=== PATIENT | female | born 1980 | race African-American/Black ===

== ENCOUNTER 2017-03-14 08:00 | Outpatient (CLI) | payer BC | END 2017-03-14 08:01 | LOC: LAB.N 08:00 | PROVIDERS: ATTEND Obstetrics & Gynecology | DX: Z32.01 Encounter for pregnancy test, result positive (principal) | CPT/HCPCS: 36415; 84702 ==

== ENCOUNTER 2017-03-16 11:41 | Outpatient (CLI) | payer BC | END 2017-03-16 11:42 | disposition home or self-care (01) | LOC: LAB.N 11:41 | PROVIDERS: ATTEND Obstetrics & Gynecology | DX: Z32.01 Encounter for pregnancy test, result positive (principal) | CPT/HCPCS: 36415; 84702 ==

== ENCOUNTER 2017-03-29 08:00 | Outpatient (CLI) | payer BC | END 2017-03-29 23:59 | disposition home or self-care (01) | LOC: LAB.R 08:00 | PROVIDERS: ATTEND Obstetrics & Gynecology | DX: Z11.3 Encounter for screening for infections with a predominantly sexual mode of transmission (principal) | CPT/HCPCS: 87491; 87591 ==

== ENCOUNTER 2017-04-19 13:39 | Outpatient (CLI) | payer BC ==
[2017-04-19 18:41] LABS: BASOPHILS % (AUTO) 0.5 %; EOSINOPHILS # (AUTO) 0.2 10^3/uL (0.0-0.7); EOSINOPHILS % (AUTO) 3.6 %; HGB - HEMOGLOBIN 12.6 g/dL (12.0-16.0); LYMPHOCYTES # (AUTO) 2.2 10^3/uL (1.5-3.5); LYMPHOCYTES % (AUTO) 31.8 %; MEAN CORPUSCULAR HEMOGLOBIN 29.1 pg (27.0-31.0); MEAN CORPUSCULAR HGB CONC 33.6 g/dL (32.0-36.0); MEAN CORPUSCULAR VOLUME 86.7 fL (81.0-99.0); MEAN PLATELET VOLUME 7.1 fL (7.9-10.8); MONOCYTES # (AUTO) 0.4 10^3/uL (0.0-1.0); MONOCYTES % (AUTO) 5.7 %; NEUTROPHILS % (AUTO) 58.4 %; PLT - PLATELET COUNT 270 10^3/uL (130-450); RED BLOOD COUNT 4.34 10^6/uL (4.20-5.40); RED CELL DISTRIBUTION WIDTH 13.5 % (12.0-15.0); WHITE BLOOD COUNT 6.8 x10^3/uL (4.8-10.8)
[2017-04-19 18:42] LABS: BILIRUBIN,URINE NEGATIVE (NEGATIVE); GLUCOSE, URINE (UA) NEGATIVE (NEGATIVE); KETONES,URINE (UA) NEGATIVE (NEGATIVE); LEUKOCYTE ESTERASE, URINE NEGATIVE (NEGATIVE); NITRITE,URINE NEGATIVE (NEGATIVE); OCCULT BLOOD,URINE SMALL (NEGATIVE); PROTEIN,URINE NEGATIVE (NEGATIVE); UROBILINOGEN,URINE 0.2 (NORMAL) E.U./dL (NORMAL)
[2017-04-19 18:56] LABS: BACTERIA,URINE Few /HPF (None Seen); CLARITY,URINE CLEAR (CLEAR); MUCUS,URINE Moderate Strands; RBC,URINE 0-5 /HPF (0-5); SQUAMOUS EPITHELIAL CELL,UR MANY Squamous (<= Few)
[2017-04-20 14:02] LABS: HEPATITIS C ANTIBODY NON-REACTIVE (NON-REACTIVE)
[2017-04-20 14:03] LABS: HEPATITIS B SURFACE ANTIGEN NON-REACTIVE (NON-REACTIVE)
[2017-04-20 14:25] LABS: HIV AG/AB 4TH GEN NON-REACTIVE (NON-REACTIVE)
== END 2017-04-19 13:40 | disposition home or self-care (01) ==
LOC: LAB.N 13:39
PROVIDERS: ATTEND Obstetrics & Gynecology
DX: Z36.9 Encounter for antenatal screening, unspecified (principal)
CPT/HCPCS: 36415; 81001; 81599; 85025; 86592; 86762; 86803; 86850; 86900; 86901; 87340; 87389

== ENCOUNTER 2017-04-25 08:00 | Outpatient (CLI) | payer BC ==
--- NOTE | 2017-04-25 23:50 | Ultrasound Preliminary Report ---
Exam: US OB TRANSVAGINAL IMPRESSION: 1. Findings most compatible with demise at 8 weeks 0 days. 2. No definite perigestational collection demonstrated. RADIA The call report notification system was initiated by Dr. Erin Patel at 23:45 hrs on 04/25/17. The above findings were discussed with Brandin Lester by Dr. Erin Patel at 23:48 hrs on 04/25/17. SITE ID: [id number]
--- NOTE | 2017-04-26 00:13 | Ultrasound Report ---
EXAM: FIRST TRIMESTER OBSTETRIC ULTRASOUND (Less than 11 weeks) EXAM DATE: 04/25/2017 11:11 PM. CLINICAL HISTORY: Threatened . Heartbeat not found at the referring provider's office ultraso und. COMPARISONS: None. TECHNIQUE: Transabdominal and transvaginal ultrasound examination with static image documentation. FINDINGS: LMP: 02/07/2017. Estimated gestational age: 11 weeks 0 days. Estimated due date: 11/14/2017. Gestational Sac: Single intrauterine, somewhat irregularly marginated. Mean gestational sac diameter : 29 mm = 8 weeks 0 days. Embryo: CRL (crown-rump length) 17 mm = 8 weeks 0 days. Cardiac activity: Not seen. Yolk sac: 3 mm. Amniotic fluid: Not accurately assessed at this gestational age. Early placenta: Not visible at this gestational age. Other: No perigestational fluid collection demonstrated. MATERNAL STRUCTURES: Uterus: Anteverted/Retroverted. Unremarkable. Cervix: Closed. Right Ovary/Adnexa: There is a 1.6 x 1.5 x 1.3 cm cyst within the right ovary. Right ovary measures 2 .8 x 2.6 x 2.4 cm. Left Ovary/Adnexa: Left ovary measures 2.2 x 2.0 x 1.8 cm. Free Fluid: None. Other: None. IMPRESSION: 1. Findings most compatible with demise at 8 weeks 0 days. 2. No definite perigestational collection demonstrated. RADIA The call report notification system was initiated by Dr. Erin Patel at 23:45 hrs on 04/25/17. The above findings were discussed with Brandin Lester by Dr. Erin Patel at 23:48 hrs on 04/25/17. Referring Provider Line: [phone] SITE ID: [id number]
== END 2017-04-25 08:01 | disposition home or self-care (01) ==
LOC: LAB.R 08:00
PROVIDERS: ATTEND Obstetrics & Gynecology
DX: N89.8 Other specified noninflammatory disorders of vagina (principal); Z11.3 Encounter for screening for infections with a predominantly sexual mode of transmission
CPT/HCPCS: 76817; 87480; 87491; 87510; 87591; 87660

== ENCOUNTER 2017-04-25 14:50 | Outpatient (CLI) | payer BC ==
[2017-04-25 16:04] LABS: HCG,QUALITATIVE BLOOD POSITIVE
== END 2017-04-25 14:51 | disposition home or self-care (01) ==
LOC: LAB 14:50
PROVIDERS: ATTEND Obstetrics & Gynecology
DX: O20.0 Threatened abortion (principal)
CPT/HCPCS: 36415; 84703

== ENCOUNTER 2017-04-25 21:36 | Outpatient (CLI) | payer BC ==
--- NOTE | 2017-04-25 23:50 | Ultrasound Preliminary Report ---
Exam: US OB FIRST TRIMESTER IMPRESSION: 1. Findings most compatible with demise at 8 weeks 0 days. 2. No definite perigestational collection demonstrated. RADIA The call report notification system was initiated by Dr. Erin Patel at 23:45 hrs on 04/25/17. The above findings were discussed with Brandin Lester by Dr. Erin Patel at 23:48 hrs on 04/25/17. SITE ID: [id number]
--- NOTE | 2017-04-26 00:13 | Ultrasound Report ---
EXAM: FIRST TRIMESTER OBSTETRIC ULTRASOUND (Less than 11 weeks) EXAM DATE: 04/25/2017 11:11 PM. CLINICAL HISTORY: Threatened . Heartbeat not found at the referring provider's office ultraso und. COMPARISONS: None. TECHNIQUE: Transabdominal and transvaginal ultrasound examination with static image documentation. FINDINGS: LMP: 02/07/2017. Estimated gestational age: 11 weeks 0 days. Estimated due date: 11/14/2017. Gestational Sac: Single intrauterine, somewhat irregularly marginated. Mean gestational sac diameter : 29 mm = 8 weeks 0 days. Embryo: CRL (crown-rump length) 17 mm = 8 weeks 0 days. Cardiac activity: Not seen. Yolk sac: 3 mm. Amniotic fluid: Not accurately assessed at this gestational age. Early placenta: Not visible at this gestational age. Other: No perigestational fluid collection demonstrated. MATERNAL STRUCTURES: Uterus: Anteverted/Retroverted. Unremarkable. Cervix: Closed. Right Ovary/Adnexa: There is a 1.6 x 1.5 x 1.3 cm cyst within the right ovary. Right ovary measures 2 .8 x 2.6 x 2.4 cm. Left Ovary/Adnexa: Left ovary measures 2.2 x 2.0 x 1.8 cm. Free Fluid: None. Other: None. IMPRESSION: 1. Findings most compatible with demise at 8 weeks 0 days. 2. No definite perigestational collection demonstrated. RADIA The call report notification system was initiated by Dr. Erin Patel at 23:45 hrs on 04/25/17. The above findings were discussed with Brandin Lester by Dr. Erin Patel at 23:48 hrs on 04/25/17. Referring Provider Line: [phone] SITE ID: [id number]
== END 2017-04-25 21:37 | disposition home or self-care (01) ==
LOC: DI 21:36
PROVIDERS: ATTEND Obstetrics & Gynecology
DX: O20.0 Threatened abortion (principal); N89.8 Other specified noninflammatory disorders of vagina; Z11.3 Encounter for screening for infections with a predominantly sexual mode of transmission
CPT/HCPCS: 36415; 76801; 76817; 84703; 87480; 87491; 87510; 87591; 87660

== ENCOUNTER 2017-04-26 11:30 | Outpatient (CLI) | payer BC ==
--- NOTE | 2017-04-26 13:40 | PREOP HISTORY & PHYSICAL ---
ANTICIPATED DATE OF ADMISSION: 04/27/2017 IDENTIFICATION: This is a 36-year-old G4, P2-0-1-2 with a 10-week 4-day missed . HISTORY OF PRESENT ILLNESS: The patient is a patient of [facility] with whom we have been watching her with her . I started seeing the patient for her beginning on 03/19/2017. An ultrasound on 03/29/2017 and 6 weeks 4 days, was consistent with dates. The patient's has been going well until about 2 days ago. The patient called me and stated that she was having some small amount of vaginal bleeding. The bleeding did stop and restarted again. The patient came to see us at [facility] and an ultrasound was performed yesterday on 04/25/2017. This ultrasound unfortunately showed a single intrauterine somewhat irregularly marginated. The embryo measured 17 mm at 8 weeks 0 days. Cardiac activity was not seen. There is no perigestational fluid collection demonstrated. There is no free fluid. The patient understandably is feeling quite sad, though she is doing well under the current circumstances. She states that she is only having some dark red vaginal bleeding. She is accompanied today with her , JOJO. The patient denies any active vaginal bleeding or any contractions. I discussed with the patient my recommendation to undergo a suction, dilatation and curettage, mainly because at approximately 10 weeks' gestational age, there is a high likelihood of incomplete AB. I discussed with the patient the risks, benefits, alternatives, indications, and expectations of a suction, dilatation and curettage. Including in our discussion where the risks of infection, hemorrhage and in this particular procedure, a uterine perforation. The patient understands that this surgery should not affect her ability to have more children in the future. After all of the patient's and CJ's questions were answered to their satisfaction. They both verbalized their desire to proceed with a suction, dilatation and curettage. Consent forms have been signed. Currently, the patient denies any nausea, vomiting, fevers, chills, diarrhea, or constipation. PAST MEDICAL HISTORY: Headaches. PAST SURGICAL HISTORY: None. ALLERGIES: NO KNOWN DRUG ALLERGIES. MEDICATIONS: vitamins with folic acid. SOCIAL HISTORY: She denies any tobacco or alcohol or illicit drug use. Her is JOJO. 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 PAST OBSTETRICAL HISTORY: She has had 2 spontaneous vaginal deliveries. She has had 1 miscarriage last year that was completed with medications. LMP for this is 02/11/2018, giving an EDC of 11/18/2017. Most recent Paps are 12/19/2016 is both negative, as well as a screening for the high risk human papillomavirus. FAMILY HISTORY: Noncontributory. REVIEW OF SYSTEMS: Negative unless otherwise stated. OBJECTIVE VITAL SIGNS: Weight is 127 pounds, height is 61 inches, BMI is 24, blood pressure 102/64. GENERAL: The patient is a well-developed, well-nourished female in no apparent distress. She is appropriately sad. She is alert and oriented x3. HEENT: Within normal limits. CARDIOVASCULAR: Regular rate is regular. No murmurs, rubs. PULMONARY: Lungs clear to auscultation bilaterally. ABDOMEN: Soft, nontender. No masses, rebound, rigidity or guarding. LABORATORIES: On 04/19/2017, reveal white count of 6.8, H and H of 12.6 and 37.7, platelets 270. Rubella is nonimmune. Blood type is O positive. Antibody screen is negative. HIV nonreactive. Hepatitis B surface antigen is nonreactive. RPR is nonreactive and a urinalysis shows urogenital deuce. ASSESSMENT: A 36-year-old G4, P2-0-1-2 with a 10-week 4-day missed AB. By ultrasound, measuring 8 weeks 0 days. PLAN 1. I discussed with the patient my sadness in her losing the . I tried to reinforce to the patient that this most likely is a that was not compatible with life and that she should not have any guilt for doing anything to the or not doing something for the . I discussed with the patient her options including a suction, dilatation and curettage. The patient has verbalized her desire to proceed with this surgery. Consents have been signed. 2. The patient to get a CBC prior to surgery. 3. I discussed with the patient she should take ibuprofen 200 mg 4 tabs p.o. q.6 hours and Tylenol 500 mg 2 tabs p.o. every 12 hours p.r.n. pain. If those two medications still do not take care of her postoperative cramping, I have given the patient a prescription for Vicodin #10 tablets for breakthrough pain. 4. I have discussed with the patient that she may experience cramping and some small amount of vaginal bleeding. However, should she have worsening fevers, chills, abdominal pain or changing a pad every hour due to bleeding, she should call me immediately. 5. Patient to see me at [facility] in 2 weeks for routine postoperative examination. 6. The patient is to continue taking vitamins with folic acid as she still intends to conceive in the near future. TD: 04/26/2017 13:32 MTDAlka
[2017-04-26 19:08] LABS: BASOPHILS % (AUTO) 0.7 %; EOSINOPHILS # (AUTO) 0.2 10^3/uL (0.0-0.7); EOSINOPHILS % (AUTO) 4.3 %; HGB - HEMOGLOBIN 12.9 g/dL (12.0-16.0); LYMPHOCYTES # (AUTO) 1.7 10^3/uL (1.5-3.5); LYMPHOCYTES % (AUTO) 30.5 %; MEAN CORPUSCULAR HEMOGLOBIN 28.6 pg (27.0-31.0); MEAN CORPUSCULAR HGB CONC 32.5 g/dL (32.0-36.0); MONOCYTES # (AUTO) 0.5 10^3/uL (0.0-1.0); MONOCYTES % (AUTO) 9.4 %; NEUTROPHILS # (AUTO) 3.2 10^3/uL (1.5-6.6); NEUTROPHILS % (AUTO) 55.1 %; PLT - PLATELET COUNT 274 10^3/uL (130-450); RED BLOOD COUNT 4.52 10^6/uL (4.20-5.40); RED CELL DISTRIBUTION WIDTH 13.5 % (12.0-15.0); WHITE BLOOD COUNT 5.7 x10^3/uL (4.8-10.8)
== END 2017-04-26 11:31 | disposition home or self-care (01) ==
LOC: LAB.N 11:30
PROVIDERS: ATTEND Obstetrics & Gynecology
DX: O02.1 Missed abortion (principal)
CPT/HCPCS: 36415; 85025

== ENCOUNTER 2017-04-27 09:53 | Day surgery (SDC) | payer BC ==
[2017-04-27] MEDS ORDERED: ceFAZolin 2 GM/50 ML 2 GM/50 ML BAG IV ONE (10:09)
[2017-04-27] MEDS ORDERED: CELECOXIB 100 MG CAPSULE PO ONE (10:09)
[2017-04-27] MEDS ORDERED: LACTATED RINGERS 1,000 ML IV ONE ×2 (10:20→11:25)
[2017-04-27] MEDS ORDERED: KETOROLAC 30 MG/ML VIAL IVP ONE (11:30)
[2017-04-27] MEDS ORDERED: PROPOFOL 200 MG/20 ML VIAL IVP ONE (11:30)
[2017-04-27] MEDS ORDERED: MIDAZOLAM 2 MG/2 ML VIAL IVP ONE (11:30)
[2017-04-27] MEDS ORDERED: ONDANSETRON 4 MG/2 ML VIAL IVP ONE (11:30)
[2017-04-27] MEDS ORDERED: fentaNYL 100 MCG/2 ML VIAL IVP ONE (11:30)
[2017-04-27] MEDS ORDERED: DEXAMETHASONE 4 MG/ML VIAL IVP ONE (11:30)
--- NOTE | 2017-04-27 11:32 | OPERATIVE REPORT ---
Operative Report - Other Other Information/Narrative: Date of Operation: 04/27/2017 Surgeon: Cara Cruz DO FACOG Drawbridge Tender: None Crystal Growing Technician: Yoko Rubio CRNA Anesthesia: LMA Pre-op Dx: 1. 36 yo with a 10w5d IUP 2. Missed Pre-op Dx: 1. 36 yo with a 10w5d IUP 2. Missed Procedure: Suction dilation and curettage Findings: Products of conception Specimens: Uterine curettings EBL: 25 mL Drains: None Complications: None Dictation: [id number]
--- NOTE | 2017-04-27 12:01 | OPERATIVE REPORT ---
DATE OF OPERATION: 04/27/2017 PREOPERATIVE DIAGNOSES 1. A 36-year-old, G4, P2-0-1-2 with a 10-week, 5-day intrauterine . 2. Missed . POSTOPERATIVE DIAGNOSES 1. A 36-year-old, G4, P2-0-1-2 with a 10-week, 5-day intrauterine . 2. Missed . NAME OF PROCEDURE: Suction, dilatation and curettage. SURGEON: Cara Cruz DO, FACOG ANESTHESIA: LMA. ADVANCED MANAGER: None. BAR CATCHER: Yoko Rubio CRNA. FINDINGS: Products of conception. SPECIMENS: Uterine curettings. ESTIMATED BLOOD LOSS: 25 mL. DRAINS: None. COMPLICATIONS: None. BRIEF HISTORY: The patient is a patient of [facility] who reported having irregular vaginal bleeding at about 10 weeks' gestation. An ultrasound was performed, which unfortunately revealed no cardiac activity and a single intrauterine . I discussed with the patient the risks, benefits, alternatives, indications, expectations of a suction, dilatation and curettage. Included in our discussion were the risks of hemorrhage, infection and damage to surrounding organs, which in this case would most likely be an inadvertent uterine perforation. After all of the patient's questions were answered to her satisfaction, she verbalized her desire to proceed with surgery. Consent forms have been signed. OPERATION IN DETAIL: The patient was identified and consented, taken to the operating room where IV access was already in place. She was then given sequential compression devices which were placed on her lower extremities and turned on. The patient was given 2 grams of Ancef IV for postoperative endometritis prophylaxis. She was then given satisfactory general anesthesia via LMA by Yoko Rubio. She was then prepped and draped in a normal sterile fashion in the lithotomy position using the Yellofins stirrups. A timeout was then performed, which correctly identified the patient, site of procedure, and procedure itself. The open sided speculum was placed in the vagina and the cervix was identified. A single-tooth tenaculum was placed on the anterior lip of the cervix and the cervix was then dilated to 8-Swiss. A curved rigid 8 suction curette was then used to curette the endometrium. Next, the #2 curet was then used to sharply curette the endometrium until a satisfactory uterine cry was palpated throughout the endometrium. At this point in time, the procedure had been completed. All of the instruments were removed out of the vagina, and the cervix and vagina were hemostatically stable. The patient tolerated the procedure well and was taken back to recovery room in stable condition. She will be discharged home later today after postoperative criteria are met. The patient already has a prescription for Vicodin for breakthrough pain, should [id number] ibuprofen and Tylenol not satisfactorily control her pain. The patient is to call, should she have any worsening fever, chills, abdominal pain or vaginal bleeding. She is to follow up with myself at [facility] in 2 weeks for a routine postoperative examination. TD: 04/27/2017 12:00 CHEKO
[2017-04-27] MEDS ORDERED: HYDROcod/ACETAM 5/325 MG TABLET ONE (12:29)
[2017-04-27 13:21] VITALS: BP 97/62
== END 2017-04-27 09:54 | disposition home or self-care (01) ==
LOC: SDS 09:53
PROVIDERS: ATTEND Obstetrics & Gynecology
PROC: 10D17ZZ Extraction of Products of Conception, Retained, Via Natural or Artificial Opening (ICD-10-PCS; principal; 2017-04-27 11:00)
DX: O02.1 Missed abortion (principal)
CPT/HCPCS: 59820; A9270; J0690; J7120

== ENCOUNTER 2017-05-09 14:37 | Outpatient (CLI) | payer BC ==
[2017-05-09 19:21] LABS: THYROID STIMULATING HORMONE 0.93 uIU/mL (0.34-5.60)
[2017-05-09 19:25] LABS: FREE T4 (FREE THYROXINE) 0.95 ng/dL (0.58-1.64)
== END 2017-05-09 14:38 | disposition home or self-care (01) ==
LOC: LAB.N 14:37
PROVIDERS: ATTEND Obstetrics & Gynecology
DX: O02.1 Missed abortion (principal)
CPT/HCPCS: 36415; 84439; 84443; 84481

== ENCOUNTER 2018-02-06 08:00 | Outpatient (CLI) | payer BC | END 2018-02-06 23:59 | disposition home or self-care (01) | LOC: LAB.N 08:00 | PROVIDERS: ATTEND Registered Nurse | DX: Z87.59 Personal history of other complications of pregnancy, childbirth and the puerperium (principal) | CPT/HCPCS: 36415; 84144 ==

== ENCOUNTER 2018-02-15 11:11 | Outpatient (CLI) | payer BC ==
[2018-02-15 19:05] LABS: MUDS CUTOFF CONCENTRATIONS CUTOFF CONC BELOW:
[2018-02-15 19:29] LABS: AMPHETAMINE SCREEN,URINE NEGATIVE (NEGATIVE); BENZODIAZEPINES SCREEN, URINE NEGATIVE (NEGATIVE); COCAINE SCREEN URINE NEGATIVE (NEGATIVE); METHADONE SCREEN, URINE NEGATIVE (NEGATIVE); METHAMPHETAMINES SCREEN, URINE NEGATIVE (NEGATIVE); OPIATE SCREEN, URINE NEGATIVE (NEGATIVE); OXYCODONE SCREEN, URINE NEGATIVE (NEGATIVE); PROPOXYPHENE SCREEN, URINE NEGATIVE (NEGATIVE); TRICYCLIC ANTIDEPRESSANT,URINE NEGATIVE (NEGATIVE)
== END 2018-02-15 23:59 | disposition home or self-care (01) ==
LOC: LAB.R 11:11
PROVIDERS: ATTEND Registered Nurse
DX: Z33.1 Pregnant state, incidental (principal); Z87.59 Personal history of other complications of pregnancy, childbirth and the puerperium
CPT/HCPCS: 80306; 87480; 87491; 87510; 87591; 87660

== ENCOUNTER 2018-02-17 08:22 | Outpatient (CLI) | payer BC ==
--- NOTE | 2018-02-18 10:38 | Ultrasound Report ---
Reason: TEST POSITIVE Procedure Date: 02/17/2018 Accession Number: [id number] / [id number] Procedure: US - OB First Trimester CPT Code: FULL RESULT: EXAM: FIRST TRIMESTER OBSTETRIC ULTRASOUND (Less than 11 weeks) EXAM DATE: 02/17/2018 09:46 AM. CLINICAL HISTORY: test positive. LMP: Unknown. COMPARISONS: OB FIRST TRIMESTER 04/25/2017 10:20 PM. TECHNIQUE: Transabdominal and transvaginal ultrasound examination with static image documentation. CLINICAL DATES: EGA 6 weeks 3 days with CORINA 10/10/2018 based on last menstrual period. ASSESSMENT: Gestational Sac: Single intrauterine. Mean gestational sac diameter: 2.3 mm = 6 weeks 5 days. Embryo: CRL (crown-rump length) 2.1 mm = 6 weeks 0 days. Cardiac activity: 109 beats per minute. Yolk sac: 3.4 mm. Amniotic fluid: Not accurately assessed at this gestational age. Early placenta: Not visible at this gestational age. Other: There is a 6 x 4 x 4 mm perigestational fluid collection. MATERNAL STRUCTURES: Uterus: Anteverted. Unremarkable. Cervix: Closed. Right Ovary/Adnexa: The ovary measures 2.2 x 1.5 x 1.6 cm, volume 6.4 cc. Unremarkable. Left Ovary/Adnexa: The ovary measures 4.7 x 2.6 x 3.6 cm, volume 23 cc. 1.3 x 1.4 x 1.2 cm and 1.7 x 1.6 1.3 cm cysts, sizes are suggestive of physiologic findings corpus luteum/follicle. Free Fluid: None. Other: None. IMPRESSION: 1. Single viable intrauterine at EGA 6 weeks 0 days with CORINA 10/08/2018 based on crown-rump length, which is concordant with clinical dates. 2. Assigned dating is CORINA 10/10/2018 based on last menstrual period. RADIA
== END 2018-02-17 08:23 | disposition home or self-care (01) ==
LOC: DI 08:22
PROVIDERS: ATTEND Registered Nurse
DX: Z32.01 Encounter for pregnancy test, result positive (principal)
CPT/HCPCS: 76801

== ENCOUNTER 2018-02-20 09:24 | Outpatient (CLI) | payer BC ==
[2018-02-20 11:02] LABS: MUDS CUTOFF CONCENTRATIONS CUTOFF CONC BELOW:
[2018-02-20 11:07] LABS: BASOPHILS # (AUTO) 0.1 10^3/uL (0.0-0.1); BASOPHILS % (AUTO) 0.9 %; EOSINOPHILS # (AUTO) 0.1 10^3/uL (0.0-0.7); EOSINOPHILS % (AUTO) 1.2 %; HGB - HEMOGLOBIN 12.6 g/dL (12.0-16.0); LYMPHOCYTES # (AUTO) 1.6 10^3/uL (1.5-3.5); LYMPHOCYTES % (AUTO) 20.8 %; MEAN CORPUSCULAR HEMOGLOBIN 29.3 pg (27.0-31.0); MEAN CORPUSCULAR HGB CONC 33.7 g/dL (32.0-36.0); MONOCYTES # (AUTO) 0.4 10^3/uL (0.0-1.0); MONOCYTES % (AUTO) 4.9 %; NEUTROPHILS # (AUTO) 5.5 10^3/uL (1.5-6.6); NEUTROPHILS % (AUTO) 72.2 %; PLT - PLATELET COUNT 277 10^3/uL (130-450); RED BLOOD COUNT 4.31 10^6/uL (4.20-5.40); RED CELL DISTRIBUTION WIDTH 13.6 % (12.0-15.0); WHITE BLOOD COUNT 7.6 x10^3/uL (4.8-10.8)
[2018-02-20 11:22] LABS: HB2 TOTAL 13.5 g/dL; HEMOGLOBIN A1C 0.51 g/dL; HEMOGLOBIN A1C % 5.6 % (4.6-6.2)
[2018-02-20 11:41] LABS: BILIRUBIN,URINE NEGATIVE (NEGATIVE); GLUCOSE, URINE (UA) 100 mg/dL (NEGATIVE); KETONES,URINE (UA) TRACE mg/dL (NEGATIVE); LEUKOCYTE ESTERASE, URINE NEGATIVE (NEGATIVE); NITRITE,URINE NEGATIVE (NEGATIVE); OCCULT BLOOD,URINE SMALL (NEGATIVE); PROTEIN,URINE NEGATIVE (NEGATIVE); UROBILINOGEN,URINE 0.2 (NORMAL) E.U./dL (NORMAL)
[2018-02-20 11:46] LABS: CLARITY,URINE CLEAR (CLEAR)
[2018-02-20 11:51] LABS: AMPHETAMINE SCREEN,URINE NEGATIVE (NEGATIVE); BENZODIAZEPINES SCREEN, URINE NEGATIVE (NEGATIVE); COCAINE SCREEN URINE NEGATIVE (NEGATIVE); METHADONE SCREEN, URINE NEGATIVE (NEGATIVE); METHAMPHETAMINES SCREEN, URINE NEGATIVE (NEGATIVE); OPIATE SCREEN, URINE NEGATIVE (NEGATIVE); OXYCODONE SCREEN, URINE NEGATIVE (NEGATIVE); PROPOXYPHENE SCREEN, URINE NEGATIVE (NEGATIVE); TRICYCLIC ANTIDEPRESSANT,URINE NEGATIVE (NEGATIVE)
[2018-02-20 12:12] LABS: T4 (THYROXINE) 9.94 ug/dL (6.09-12.23)
[2018-02-20 12:16] LABS: THYROID STIMULATING HORMONE 0.77 uIU/mL (0.34-5.60)
[2018-02-20 12:24] LABS: RBC,URINE 0-5 /HPF (0-5); SQUAMOUS EPITHELIAL CELL,UR MOD Squamous (<= Few)
[2018-02-20 12:25] LABS: BACTERIA,URINE Rare /HPF (None Seen); MUCUS,URINE Few Strands
[2018-02-21 10:32] LABS: HEPATITIS B SURFACE ANTIGEN NON-REACTIVE (NON-REACTIVE); HEPATITIS C ANTIBODY NON-REACTIVE (NON-REACTIVE)
[2018-02-21 11:47] LABS: HIV AG/AB 4TH GEN NON-REACTIVE (NON-REACTIVE)
== END 2018-02-20 09:25 | disposition home or self-care (01) ==
LOC: LAB 09:24
PROVIDERS: ATTEND Registered Nurse
DX: Z33.1 Pregnant state, incidental (principal); Z87.59 Personal history of other complications of pregnancy, childbirth and the puerperium
CPT/HCPCS: 36415; 80306; 81001; 81599; 82950; 83036; 84144; 84436; 84443; 84702; 85025; 86592; 86762; 86803; 86850; 86870; 86900; 86901; 87086; 87340; 87389

== ENCOUNTER 2018-02-22 08:08 | Outpatient (CLI) | payer BC | END 2018-02-22 08:09 | disposition home or self-care (01) | LOC: LAB 08:08 | PROVIDERS: ATTEND Registered Nurse | DX: O99.89 Other specified diseases and conditions complicating pregnancy, childbirth and the puerperium (principal); O99.810 Abnormal glucose complicating pregnancy | CPT/HCPCS: 36415; 81599; 82951; 82952 ==

== ENCOUNTER 2018-08-22 12:34 | Outpatient (CLI) | payer OTHER ==
[2018-08-22 13:04] VITALS: BP 95/57
--- NOTE | 2018-09-11 10:02 | PROCEDURE REPORT ---
- HPI Diagnosis/Indication for NST: Pre- Diabetes Current EDU 10/10/18 Gestation 33 Weeks and 0 Days 7 Para 2 Vital Signs Temperature 98.4 F 08/22/18 13:02 Heart Rate 99 08/22/18 13:02 Respiratory Rate 16 08/22/18 13:02 Blood Pressure 95/57 L 08/22/18 13:02 O2 Saturation 99 08/22/18 13:02 Temperature 98.4 F 08/22/18 13:02 Heart Rate 99 08/22/18 13:02 Respiratory Rate 16 08/22/18 13:02 Blood Pressure 95/57 L 08/22/18 13:02 O2 Saturation 99 08/22/18 13:02 - NST Procedure NST Procedure Start Date 08/22/18 Start Time 12:49 Stop Time 13:50 Vibroacoustic Stimulation Used No Patient States Movement Yes - Results and Plan Findings/Impression: Pt is a 38 at 33w0 days with complicated by T2DM here for NST EFM 145 mod coby 15x15 accels no decels TOCO quet Cat I tracing Cont with testing, NST 2x/week and weekly TASHA
== END 2018-08-22 14:00 | disposition home or self-care (01) ==
LOC: WFO 12:34 → FBP 12:40 → WFO 14:00
PROVIDERS: ATTEND Obstetrics & Gynecology
DX: O24.113 Pre-existing type 2 diabetes mellitus, in pregnancy, third trimester (principal); E11.9 Type 2 diabetes mellitus without complications; Z3A.33 33 weeks gestation of pregnancy
CPT/HCPCS: 59025

== ENCOUNTER 2018-08-29 13:00 | Outpatient (CLI) | payer OTHER ==
[2018-08-29 13:23] VITALS: BP 103/72
--- NOTE | 2018-08-30 17:41 | PROCEDURE REPORT ---
- HPI Diagnosis/Indication for NST: Other (DATE OF SERVICE 08/29/18) Current EDU 10/10/18 Gestation 34 Weeks and 0 Days 7 Para 2 Vital Signs Temperature 98.1 F 08/29/18 13:20 Heart Rate 104 H 08/29/18 13:20 Respiratory Rate 16 08/29/18 13:20 Blood Pressure 103/72 08/29/18 13:20 O2 Saturation 100 08/29/18 13:20 Temperature 98.1 F 08/29/18 13:20 Heart Rate 104 H 08/29/18 13:20 Respiratory Rate 16 08/29/18 13:20 Blood Pressure 103/72 08/29/18 13:20 O2 Saturation 100 08/29/18 13:20 - NST Procedure NST Procedure Start Date 08/29/18 Start Time 13:10 Stop Time 13:50 Vibroacoustic Stimulation Used No Patient States Movement Yes Mod coby [id number] accels no decels [place] quiet Cat I tracing - Results and Plan Findings/Impression: Cat I tracing Cont with AP testing: twice weekly NST and weekly TASHA FU with provider at [facility] for Ob care Warning signs reviewed.
== END 2018-08-29 13:37 | disposition home or self-care (01) ==
LOC: WFO 13:00 → FBP 13:02 → WFO 13:37
PROVIDERS: ATTEND Obstetrics & Gynecology
DX: O24.419 Gestational diabetes mellitus in pregnancy, unspecified control (principal); Z3A.34 34 weeks gestation of pregnancy
CPT/HCPCS: 59025

== ENCOUNTER 2018-09-06 12:57 | Outpatient (CLI) | payer OTHER ==
[2018-09-06 13:08] VITALS: BP 106/64
--- NOTE | 2018-09-11 15:01 | PROCEDURE REPORT ---
- HPI Diagnosis/Indication for NST: Gestational Diabetes Current EDU 10/10/18 Gestation 35 Weeks and 1 Days 7 Para 2 Vital Signs Temperature 36.6 C 09/06/18 13:07 Heart Rate 85 09/06/18 13:07 Respiratory Rate 16 09/06/18 13:07 Blood Pressure 106/64 09/06/18 13:07 O2 Saturation 99 09/06/18 13:07 Temperature 36.6 C 09/06/18 13:07 Heart Rate 85 09/06/18 13:07 Respiratory Rate 16 09/06/18 13:07 Blood Pressure 106/64 09/06/18 13:07 O2 Saturation 99 09/06/18 13:07 - NST Procedure NST Procedure Start Date 09/06/18 Start Time 13:05 Stop Time 13:35 Vibroacoustic Stimulation Used No Patient States Movement Yes - Results and Plan Findings/Impression: reactive NST Plan: continue with twice weekly NST
== END 2018-09-06 13:40 | disposition home or self-care (01) ==
LOC: WFO 12:57 → FBP 12:59 → WFO 13:40
PROVIDERS: ATTEND Obstetrics & Gynecology
DX: O24.419 Gestational diabetes mellitus in pregnancy, unspecified control (principal); Z3A.35 35 weeks gestation of pregnancy; O09.523 Supervision of elderly multigravida, third trimester
CPT/HCPCS: 59025

== ENCOUNTER 2018-09-12 12:55 | Outpatient (CLI) | payer OTHER ==
[2018-09-12 13:09] VITALS: BP 110/73
--- NOTE | 2018-09-13 16:13 | PROCEDURE REPORT ---
- HPI Diagnosis/Indication for NST: Pre- Diabetes Current EDU 10/10/18 Gestation 36 Weeks and 0 Days 7 Para 2 Vital Signs Temperature 98.2 F 09/12/18 13:07 Heart Rate 83 09/12/18 13:07 Respiratory Rate 16 09/12/18 13:07 Blood Pressure 110/73 09/12/18 13:07 O2 Saturation 100 09/12/18 13:07 Temperature 98.2 F 09/12/18 13:07 Heart Rate 83 09/12/18 13:07 Respiratory Rate 16 09/12/18 13:07 Blood Pressure 110/73 09/12/18 13:07 O2 Saturation 100 09/12/18 13:07 - NST Procedure NST Procedure Start Date 09/12/18 Start Time 13:05 Stop Time 13:35 Vibroacoustic Stimulation Used No Patient States Movement Yes - Results and Plan Findings/Impression: 38 yo at 36w0d with insulin dependent diabetes here for NST EFM 135 mod coby 15x15 accels no decels TOCO: intermittent and mld Category tracing -Cont with twice weekly NST and weekly TASHA -Plans to deliver at [address]
== END 2018-09-12 13:40 | disposition home or self-care (01) ==
LOC: WFO 12:55 → FBP 12:59 → WFO 13:40
PROVIDERS: ATTEND Obstetrics & Gynecology
DX: O24.414 Gestational diabetes mellitus in pregnancy, insulin controlled (principal); Z3A.36 36 weeks gestation of pregnancy; O09.523 Supervision of elderly multigravida, third trimester
CPT/HCPCS: 59025

== ENCOUNTER 2018-09-19 15:03 | Outpatient (CLI) | payer OTHER ==
[2018-09-19 16:29] VITALS: BP 93/61
--- NOTE | 2018-09-20 17:17 | PROCEDURE REPORT ---
- HPI Diagnosis/Indication for NST: Other (Insulin dependent diabetes) Current EDU 10/10/18 Gestation 37 Weeks and 0 Days 7 Para 2 Vital Signs Temperature 98.4 F 09/19/18 15:19 Heart Rate 85 09/19/18 15:19 Respiratory Rate 16 09/19/18 15:19 Blood Pressure 92/52 L 09/19/18 15:19 O2 Saturation 100 09/19/18 15:19 Temperature 98.4 F 09/19/18 15:19 Heart Rate 85 09/19/18 15:19 Respiratory Rate 16 09/19/18 15:19 Blood Pressure 93/61 09/19/18 16:27 O2 Saturation 100 09/19/18 15:19 - NST Procedure NST Procedure Start Date 09/19/18 Start Time 15:13 Stop Time 16:32 Vibroacoustic Stimulation Used No Patient States Movement Yes EFM 140 mod coby 15x15 accels no Decels TOCO: irritable Cat I tracing - Results and Plan Findings/Impression: 38 yo at 37 wga here for NST for IDDM Cat I tracing Cont with antepartum screening plan as per primary OB provider DC to home
== END 2018-09-19 16:35 | disposition home or self-care (01) ==
LOC: WFO 15:03 → FBP 15:07 → WFO 16:35
PROVIDERS: ATTEND Obstetrics & Gynecology
DX: O24.414 Gestational diabetes mellitus in pregnancy, insulin controlled (principal); O09.523 Supervision of elderly multigravida, third trimester; Z3A.37 37 weeks gestation of pregnancy
CPT/HCPCS: 59025

== ENCOUNTER 2018-09-26 13:07 | Outpatient (CLI) | payer OTHER ==
[2018-09-26 13:34] VITALS: BP 97/62
--- NOTE | 2018-09-30 21:44 | PROCEDURE REPORT ---
- HPI Diagnosis/Indication for NST: Gestational Diabetes Current EDU 10/10/18 Gestation 38 Weeks and 0 Days 6 Para 2 Vital Signs Temperature 97.9 F 09/26/18 13:32 Heart Rate 82 09/26/18 13:32 Respiratory Rate 16 09/26/18 13:32 Blood Pressure 97/62 09/26/18 13:32 O2 Saturation 100 09/26/18 13:32 Temperature 97.9 F 09/26/18 13:32 Heart Rate 82 09/26/18 13:32 Respiratory Rate 16 09/26/18 13:32 Blood Pressure 97/62 09/26/18 13:32 O2 Saturation 100 09/26/18 13:32 - NST Procedure NST Procedure Start Date 09/26/18 Start Time 13:20 Stop Time 13:40 Vibroacoustic Stimulation Used No Patient States Movement Yes EFM 125 mod coby 15x15 accels no decels TOCO: quiet - Results and Plan Findings/Impression: 38 yo at 38w0d with pregnany complicated IDDM here for NST Cat I tracing Continue with twice weekly NST and weekly TASHA Managed by [facility]. Anticipate likely IOL/delviery at 39w0d
== END 2018-09-26 13:50 | disposition home or self-care (01) ==
LOC: WFO 13:07 → FBP 13:09 → WFO 13:50
PROVIDERS: ATTEND Obstetrics & Gynecology
DX: O24.414 Gestational diabetes mellitus in pregnancy, insulin controlled (principal); O09.523 Supervision of elderly multigravida, third trimester; Z3A.38 38 weeks gestation of pregnancy
CPT/HCPCS: 59025

== ENCOUNTER 2018-10-23 11:26 | Outpatient (CLI) | payer OTHER ==
--- NOTE | 2018-10-24 04:57 | XRAY Report ---
Reason: UNSP TRNS AX,INITIAL ENCOUNT WRIST PAIN Procedure Date: 10/23/2018 Accession Number: [id number] / [id number] Procedure: XR - Wrist 3 View BILAT CPT Code: FULL RESULT: EXAMS: 1. Right Wrist Radiography 2. Left Wrist Radiography EXAM DATE: 10/23/2018 12:02 PM. CLINICAL HISTORY: Pain after injury. COMPARISON: None. TECHNIQUE: 3 views each wrist. FINDINGS: Right: Bones: No fracture seen. Joints: No dislocation. Joint spaces appear intact. Soft Tissues: Grossly unremarkable. Left: Bones: No fracture seen. Joints: No dislocation. Joint spaces appear intact. Soft Tissues: Grossly unremarkable. IMPRESSION: 1. No fracture or dislocation seen bilaterally. RADIA
--- NOTE | 2018-10-24 04:59 | XRAY Report ---
Reason: UNSP TRNS AX,INITIAL ENCOUNT NECK PX, THORAC Procedure Date: 10/23/2018 Accession Number: [id number] / [id number] Procedure: XR - Thoracic Spine 2 View CPT Code: FULL RESULT: EXAM: THORACIC SPINE RADIOGRAPHY EXAM DATE: 10/23/2018 12:02 PM. CLINICAL HISTORY: Thoracic pain after injury. COMPARISON: CERVICAL SPINE 2 VIEW 10/23/2018 11:40 AM. TECHNIQUE: 2 views. FINDINGS: Alignment: C7-T1 is not well seen. Alignment at the visualized levels is unremarkable. Bones: No fracture seen at the visualized levels. Disks: Disk heights and maintained. Soft Tissues: Grossly unremarkable. IMPRESSION: 1. C7-T1 not well seen. 2. Otherwise no acute abnormality. RADIA
--- NOTE | 2018-10-24 05:00 | XRAY Report ---
Reason: UNSP TRNS AX,INITIAL ENCOUNT NECK PX, THORAC Procedure Date: 10/23/2018 Accession Number: [id number] / [id number] Procedure: XR - Cervical Spine 2 View CPT Code: FULL RESULT: EXAM: CERVICAL SPINE RADIOGRAPHY EXAM DATE: 10/23/2018 12:02 PM. CLINICAL HISTORY: Neck pain after injury. COMPARISONS: None. TECHNIQUE: 3 views. FINDINGS: Alignment: Straightening of lordosis. Bones: The cervical vertebral bodies and posterior elements are visualized from the skull base through C7. No fractures or bone lesions. Disks: The disk heights are relatively well-maintained. Facets: No degenerative disease. Soft Tissues: No prevertebral soft tissue swelling. The visualized lung apices appear clear. IMPRESSION: 1. No acute cervical spine abnormality. RADIA
== END 2018-10-23 11:27 | disposition home or self-care (01) ==
LOC: DI 11:26
PROVIDERS: ATTEND Physician Assistant
DX: M54.2 Cervicalgia (principal); M54.6 Pain in thoracic spine; M25.539 Pain in unspecified wrist
CPT/HCPCS: 72040; 72070

== ENCOUNTER 2019-10-09 12:15 | Outpatient (CLI) | payer OTHER ==
[2019-10-09 18:28] LABS: BASOPHILS # (AUTO) 0.1 10^3/uL (0.0-0.1); BASOPHILS % (AUTO) 0.9 %; EOSINOPHILS # (AUTO) 0.2 10^3/uL (0.0-0.7); EOSINOPHILS % (AUTO) 3.2 %; HGB - HEMOGLOBIN 13.6 g/dL (12.0-16.0); LYMPHOCYTES # (AUTO) 2.3 10^3/uL (1.5-3.5); LYMPHOCYTES % (AUTO) 32.8 %; MEAN CORPUSCULAR HEMOGLOBIN 28.9 pg (27.0-31.0); MEAN CORPUSCULAR HGB CONC 32.2 g/dL (32.0-36.0); MEAN CORPUSCULAR VOLUME 89.8 fL (81.0-99.0); MEAN PLATELET VOLUME 9.9 fL (7.9-10.8); MONOCYTES # (AUTO) 0.5 10^3/uL (0.0-1.0); MONOCYTES % (AUTO) 7.8 %; NEUTROPHILS # (AUTO) 3.8 10^3/uL (1.5-6.6); PLT - PLATELET COUNT 193 10^3/uL (130-450); RED BLOOD COUNT 4.71 10^6/uL (4.20-5.40)
[2019-10-09 18:53] LABS: ALBUMIN 4.6 g/dL (3.2-5.5); ALBUMIN/GLOBULIN RATIO 1.4 (1.0-2.2); BILIRUBIN,TOTAL 1.4 mg/dL (0.2-1.0); CALCIUM 9.6 mg/dL (8.5-10.3); CREATININE 0.7 mg/dL (0.4-1.0); TOTAL PROTEIN 7.8 g/dL (6.7-8.2)
[2019-10-09 19:26] LABS: HEMOGLOBIN A1C 0.59 g/dL
[2019-10-09 19:35] LABS: FREE T4 (FREE THYROXINE) 1.04 ng/dL (0.58-1.64)
== END 2019-10-09 23:59 | disposition home or self-care (01) ==
LOC: LAB.WCP 12:15
PROVIDERS: ATTEND Physician Assistant
DX: Z00.00 Encounter for general adult medical examination without abnormal findings (principal); R20.2 Paresthesia of skin; Z86.32 Personal history of gestational diabetes
CPT/HCPCS: 36415; 80053; 82607; 83036; 84439; 84443; 85025

== ENCOUNTER 2019-10-23 10:25 | Outpatient (CLI) | payer OTHER ==
--- NOTE | 2019-10-23 13:01 | MRI Report ---
PROCEDURE: Thoracic Spine W/O INDICATIONS: Thoracic back pain TECHNIQUE: Noncontrast sagittal T1 spine echo and T2 fast spin echo, sagittal STIR, axial T1 and T2 fast spin ec ho through the thoracic spine. COMPARISON: None. FINDINGS: Image quality: Excellent. Alignment and Curvature: Normal thoracic vertebral body height and alignment. Bone Marrow: No suspicious focal marrow signal abnormality or bone marrow edema. Spinal Cord: Normal morphology and signal intensity of the thoracic cord. There is no syrinx. No unen hanced evidence of significant intradural pathology. Regional Soft Tissues: Prevertebral and paraspinous soft tissues unremarkable. Included portions of t he upper abdominal viscera demonstrate no acute finding. There is a 2 cm T1/T2 hyperintense mass in t he left kidney which likely represents a hemorrhagic or proteinaceous cyst, although this is not enti rely definitive. Miscellaneous: Normal intervertebral disc height and hydration. No significant degenerative changes o f the intervertebral discs, endplates, or facets. No spinal canal or neural foraminal stenosis at any level in the thoracic spine. IMPRESSION: Normal appearance of the thoracic spine with no explanation for back pain. T1/T2 hyperintense lesion in the left anterolateral kidney measuring 2 cm, is indeterminate but likel y represents a proteinaceous cyst. Renal ultrasound recommended to confirm, unless prior outside imag ing to document stability. Reviewed by: Naeem Hobbs MD on 10/23/2019 1:00 PM PDT Approved by: Naeem Hobbs MD on 10/23/2019 1:00 PM PDT Station ID: [id number]
== END 2019-10-23 10:26 | disposition home or self-care (01) ==
LOC: DI 10:25
PROVIDERS: ATTEND Family Medicine
DX: M54.6 Pain in thoracic spine (principal); R93.422 Abnormal radiologic findings on diagnostic imaging of left kidney
CPT/HCPCS: 72146

== ENCOUNTER 2019-12-01 16:33 | Outpatient (CLI) | payer OTHER ==
--- NOTE | 2019-12-02 09:45 | Ultrasound Report ---
PROCEDURE: Retroperitoneal INDICATIONS: RENAL CYST TECHNIQUE: Real-time scanning was performed of the retroperitoneal organs, with image documentation. COMPARISON: None. FINDINGS: Kidneys: Kidneys are normal in size. Right kidney measures 9.8 cm long; left kidney measures 9.7 cm long. Right renal cortical thickness is 1.7 cm; left renal cortical thickness is 1.4 cm. No solid masses, hydronephrosis, or nephrolithiasis. A simple appearing left renal cortical cyst is identifie d, measuring 1.5 x 2.6 x 2.2 cm. No solid component is present. Pancreas: Visualized portions of the pancreas are sonographically normal. Aorta: Visualized aorta is normal in caliber at 3 cm or less. Iliac arteries: Proximal common iliac arteries are normal in caliber at 2.5 cm or less. IVC: Intrahepatic inferior vena cava is patent. Miscellaneous: No free abdominal fluid. Prevoid bladder volume is 364.2 cc and postvoid residual is 5.3 cc, normal. Bilateral ureteral jets were seen. IMPRESSION: Normal retroperitoneal ultrasound with a simple appearing 2.6 cm maximal dimension left mid renal cor tical cyst, requiring no follow-up. Normal bladder function. Reviewed by: Andrew Jack MD on 12/02/2019 9:43 AM PDT Approved by: Andrew Jack MD on 12/02/2019 9:43 AM PDT Station ID: [id number]
== END 2019-12-01 16:34 | disposition home or self-care (01) ==
LOC: DI 16:33
PROVIDERS: ATTEND Physician Assistant
DX: N28.1 Cyst of kidney, acquired (principal)
CPT/HCPCS: 76770

== ENCOUNTER 2020-02-25 08:00 | Outpatient (CLI) | payer OTHER ==
[2020-02-25 22:44] LABS: BACTERIAL VAGINOSIS DNA POSITIVE (NEGATIVE); CANDIDA GLABRATA DNA NEGATIVE (NEGATIVE); CANDIDA GROUP DNA NEGATIVE (NEGATIVE); CANDIDA KRUSEI DNA NEGATIVE (NEGATIVE); TRICHOMONAS VAGINALIS DNA POSITIVE (NEGATIVE)
[2020-02-26 09:09] LABS: CHLAMYDIA TRACHOMATIS DNA NEGATIVE (NEGATIVE); NEISSERIA GONORRHOEAE DNA NEGATIVE (NEGATIVE); TRICHOMONAS VAGINALIS DNA POSITIVE (NEGATIVE)
== END 2020-02-25 23:59 | disposition home or self-care (01) ==
LOC: LAB.R 08:00
PROVIDERS: ATTEND Nurse Practitioner
DX: Z20.2 Contact with and (suspected) exposure to infections with a predominantly sexual mode of transmission (principal)
CPT/HCPCS: 81599; 87255; 87491; 87591; 87661; 87801

== ENCOUNTER 2020-06-14 07:00 | Outpatient (CLI) | payer OTHER ==
[2020-06-14 20:31] LABS: BACTERIAL VAGINOSIS DNA POSITIVE (NEGATIVE); CANDIDA GLABRATA DNA NEGATIVE (NEGATIVE); CANDIDA GROUP DNA NEGATIVE (NEGATIVE); CANDIDA KRUSEI DNA NEGATIVE (NEGATIVE); TRICHOMONAS VAGINALIS DNA POSITIVE (NEGATIVE)
== END 2020-06-14 23:59 | disposition home or self-care (01) ==
LOC: LAB.N 07:00
PROVIDERS: ATTEND Nurse Practitioner
DX: Z20.2 Contact with and (suspected) exposure to infections with a predominantly sexual mode of transmission (principal)
CPT/HCPCS: 87491; 87591; 87661; 87801

== ENCOUNTER 2022-03-02 17:22 | Outpatient (CLI) | payer MEDICAID ==
[2022-03-02 20:58] LABS: BASOPHILS % (AUTO) 0.6 %; EOSINOPHILS # (AUTO) 0.1 10^3/uL (0.0-0.7); EOSINOPHILS % (AUTO) 1.8 %; HGB - HEMOGLOBIN 12.9 g/dL (12.0-16.0); LYMPHOCYTES # (AUTO) 1.4 10^3/uL (1.5-3.5); LYMPHOCYTES % (AUTO) 19.8 %; MEAN CORPUSCULAR HEMOGLOBIN 28.7 pg (27.0-31.0); MEAN CORPUSCULAR HGB CONC 31.5 g/dL (32.0-36.0); MEAN CORPUSCULAR VOLUME 91.1 fL (81.0-99.0); MEAN PLATELET VOLUME 9.9 fL (7.9-10.8); MONOCYTES # (AUTO) 0.5 10^3/uL (0.0-1.0); MONOCYTES % (AUTO) 6.8 %; NEUTROPHILS # (AUTO) 5.1 10^3/uL (1.5-6.6); NEUTROPHILS % (AUTO) 70.6 %; PLT - PLATELET COUNT 195 10^3/uL (130-450); RED CELL DISTRIBUTION WIDTH 14.3 % (12.0-15.0); WHITE BLOOD COUNT 7.2 x10^3/uL (4.8-10.8)
[2022-03-02 21:08] LABS: ALBUMIN 4.6 g/dL (3.2-5.5); ALBUMIN/GLOBULIN RATIO 1.4 (1.0-2.2); BILIRUBIN,TOTAL 0.7 mg/dL (0.2-1.0); CALCIUM 8.8 mg/dL (8.5-10.3); CREATININE 0.8 mg/dL (0.4-1.0); POTASSIUM 3.7 mmol/L (3.5-5.0); TOTAL PROTEIN 7.9 g/dL (6.7-8.2)
[2022-03-02 21:24] LABS: THYROID STIMULATING HORMONE 0.8 uIU/mL (0.34-5.60)
[2022-03-02 22:06] LABS: ESTIMATED AVERAGE GLUCOSE 117 mg/dL (70-100); HEMOGLOBIN A1c% 5.7 % (4.27-6.07)
== END 2022-03-02 17:23 | disposition home or self-care (01) ==
LOC: LAB.N 17:22
PROVIDERS: ATTEND Nurse Practitioner Family
DX: R94.6 Abnormal results of thyroid function studies (principal); F41.9 Anxiety disorder, unspecified; F32.A Depression, unspecified; Z86.32 Personal history of gestational diabetes
CPT/HCPCS: 36415; 80053; 83036; 84443; 85025